=== PATIENT | female | born 1940 | race Caucasian/White ===

== ENCOUNTER 2018-01-30 09:12 | Inpatient (IN) | payer MEDICARE, BC ==
--- NOTE | 2018-01-30 09:36 | ED ---
HPI Chest Pain - HPI Summary HPI Summary: This pt is a 77 y/o female presenting to [facility] c/o mid sternal chest pain since 6 hours ago. Pt reports her mid chest pain radiates to right shoulder and right side of neck, and occasionally to upper back. Additionally notes she has SOB. She states her symptoms are similar to when she had a PE 1.5 years ago. Pt recently flew from the [facility] 2 days ago. She currently rates her chest pain 9 out of 10 in severity. Denies fever, chills, abd pain, nausea, vomiting. PMHx includes HTN, breast CA with L mastectomy, seizure disorder, PE. Her medications include Gabapentin, Metoprolol. Denies taking any anticoagulants. Her last stress test was "a long time ago." - History of Current Complaint Chief Complaint: EDChestPainROMI Time Seen by Provider: 01/30/18 09:22 Hx Obtained From: Patient Onset/Duration: Started Hours Ago, Still Present Timing: Lasting Hours Current Severity: Severe Pain Intensity: 9 Pain Scale Used: 0-10 Numeric Chest Pain Location: Mid Sternal Chest Pain Radiates: Yes Chest Pain Radiates To:: Back - upper, Shoulder - right, Neck - right side Aggravating Factor(s): Nothing Alleviating Factor(s): Nothing Associated Signs and Symptoms: Positive: Chest Pain, Shortness of Breath. Negative: Fever, Chills, Nausea, Abdominal Pain, Vomiting - Allergy/Home Medications Allergies/Adverse Reactions: Allergies Allergy/AdvReac Type Severity Reaction Status Date / Time No Known Allergies Allergy Verified 01/30/18 09:20 Home Medications: Home Medications Atorvastatin* [Lipitor*] 20 mg PO QPM 01/30/18 [History Confirmed 01/30/18] Gabapentin CAP(*) [Neurontin 300 CAP(*)] 300 mg PO TID 01/30/18 [History Confirmed 01/30/18] Metoprolol Tartrate TAB* [Lopressor TAB*] 50 mg PO BID 01/30/18 [History Confirmed 01/30/18] Venlafaxine EXT RELEASE CAP(NF [Effexor Xr CAP 225 MG (NF)] 225 mg PO DAILY [History Confirmed 01/30/18] PMH/Surg Hx/FS Hx/Imm Hx Cardiovascular History: Reports: Hx Hypertension Denies: Hx Myocardial Infarction Respiratory History: Reports: Hx Pulmonary Embolism Musculoskeletal History: Reports: Hx of Fracture(s) - R ankle Neurological History: Reports: Hx Seizures - Cancer History Cancer Type, Location and Year: Breast CA - Surgical History Surgery Procedure, Year, and Place: Bilateral knee replacements. Hysterectomy. L shoulder surgery. L mastectomy Infectious Disease History: No Infectious Disease History: Denies: Traveled Outside the [place] in Last 30 Days - Family History Family History: Sisters with breast CA - Social History Alcohol Use: None Substance Use Type: Reports: None Smoking Status (MU): Never Smoked Tobacco Review of Systems Negative: Fever, Chills Positive: Chest Pain Positive: Shortness Of Breath Negative: Abdominal Pain, Vomiting, Nausea All Other Systems Reviewed And Are Negative: Yes Physical Exam - Summary Physical Exam Summary: Appearance: Well appearing, no pain distress Skin: warm, dry, reflects adequate perfusion Head/face: normal Eyes: EOMI, ALYSE ENT: normal Neck: supple, nontender Respiratory: CTA, breath sounds present Cardiovascular: RRR, pulses symmetrical Abdomen: nontender, soft Bowel: present Musculoskeletal: normal, strength/ROM intact Neuro: normal, sensory motor intact, A&Ox3 Triage Information Reviewed: Yes Vital Signs On Initial Exam: Initial Vitals Temp Pulse Resp BP Pulse Ox 98.0 F 90 18 131/68 94 01/30/18 09:17 01/30/18 09:17 01/30/18 09:17 01/30/18 09:17 01/30/18 09:17 Vital Signs Reviewed: Yes Diagnostics - Vital Signs Vital Signs Temp Pulse Resp BP Pulse Ox 01/30/18 09:17 98.0 F 90 18 131/68 94 - Laboratory Result Diagrams: 01/30/18 09:45 01/30/18 09:45 Lab Statement: Any lab studies that have been ordered have been reviewed, and results considered in the medical decision making process. - Radiology Chest XR Radiology Interpretation Completed By: Radiologist Summary of Radiographic Findings: IMPRESSION: No active cardiopulmonary disease is noted. Dr. Campos has reviewed this report. - CT chest CTA CT Interpretation Completed By: Radiologist Summary of CT Findings: IMPRESSION: Negative for aneurysm or dissection of the thoracic aorta. Negative for thoracic lymphadenopathy. Unchanged 2.1 x 1.5 cm hypodense lesion projecting posteriorly from the RIGHT lobe of the thyroid gland compared with the [address] Campos has reviewed this report. Abdomen/Pelvis CTA CT Interpretation Completed By: Radiologist Summary of CT Findings: IMPRESSION: Negative for aneurysm or dissection of the thoracic aorta. Interval enlargement of multiple simple appearing hepatic cysts compared with 2012 exam. No suspicious focal hepatic lesions evident. Negative for lymphadenopathy. Degenerative spondylosis and facet joint osteoarthritis with acquired spinal stenosis. No relevant prior exam available to assess for chronicity of this finding. Correlate with clinical assessment and consider nonemergent MRI for further evaluation if deemed appropriate. Dr. Campos has reviewed this report. - EKG 09:25 Cardiac Rate: NL - at 89 bpm EKG Rhythm: Sinus Rhythm Summary of EKG Findings: LBBB. ST-T changes. 12:16 Cardiac Rate: NL - at 72 bpm EKG Rhythm: Sinus Rhythm Summary of EKG Findings: No acute changes Chest Pain Course/Dx - Course Assessment/Plan: Pt is a 77 y/o female, with hx of PE not on anticoagulants, who presents with mid sternal chest pain since 6 hours ago radiating to right shoulder and right side of neck, and occasionally to upper back. Additionally notes she has SOB. She states her symptoms are similar to when she had a PE 1.5 years ago. Chest XR shows no active cardiopulmonary disease is noted. CTA of chest/abd/pel is negative for dissection and PE. Blood work and urinalysis were obtained. First troponin is negative. In the ED course the pt was given aspirin, metoprolol, nitroglycerin. I discussed the case with Dr. Kwan, hospitalist, who accepted the pt for admission. - Chest Pain Differential Diagnosis/HQI/PQRI: Acute UT, ACS, Chest Wall - Diagnoses Provider Diagnoses: Chest pain, rule out acute myocardial infarction, Unstable angina - Provider Notifications Discussed Care Of Patient With: Desi Kwan - hospitalist Time Discussed With Above Provider: 12:00 Instructed by Provider To: Admit As Inpatient - Critical Care Time Critical Care Time: 30-74 min Discharge - Sign-Out/Discharge Documenting (check all that apply): Patient Departure - Admit to [facility] - Discharge Plan Condition: Stable Disposition: ADMITTED TO [facility] - Billing Disposition and Condition Condition: STABLE Disposition: Admitted to [facility] - Attestation Statements Document Initiated by Scribe: Yes Documenting Scribe: Sabine Torres Provider For Whom Scribe is Documenting (Include Credential): MD Rei Nobles Attestation: I, Sabine Torres, scribed for Kishan Campos MD on 01/30/18 at 1318. Scribe Documentation Reviewed: Yes Provider Attestation: The documentation as recorded by the scribe, Sabine Torres accurately reflects the service I personally performed and the decisions made by me, Kishan Campos MD
[2018-01-30 09:55] LABS: ABS Basophils 0 10^3/ul (0-0.2); ABS Eosinophils 0.3 10^3/ul (0-0.6); ABS Lymphocytes 0.9 10^3/ul (1.0-4.8); ABS Monocytes 0.7 10^3/ul (0-0.8); ABS Neutrophils 9.1 10^3/ul (1.5-7.7); ABS Nucleated RBC 0 10^3/ul; Eosinophil % 2.5 % (0-6); Hematocrit 43 % (35-47); Hemoglobin 14.3 g/dl (12.0-16.0); Lymphocyte % 8.4 % (25-47); Mean Corpuscular HGB Conc 33 g/dl (31-36); Mean Corpuscular Hemoglobin 32 pg (27-31); Mean Corpuscular Volume 96 fL (80-97); Mean Platelet Volume 7.6 um3 (7.4-10.4); Nucleated Red Blood Cells % 0.1; Platelet Count 370 10^3/ul (150-450); Red Blood Count 4.47 10^6/ul (4.00-5.40); Red Cell Distribution Width 14 % (10.5-15)
[2018-01-30] MEDS ORDERED: Nitroglycerin 2% OINT* 1 GM PAK TOPICAL ONE (10:00)
[2018-01-30 10:09] LABS: INR 0.94 (0.77-1.02)
[2018-01-30 10:13] LABS: EGFR Non-African American 67.2 (>60)
--- NOTE | 2018-01-30 10:21 | RAD ---
Indication: Chest pain. Single frontal view of the chest performed at 1004 hours was reviewed. No prior study is available for comparison. No mediastinal shift is noted. Heart is of normal size and configuration. Lung ahmadi appear clear. IMPRESSION: NO ACTIVE CARDIOPULMONARY DISEASE IS NOTED.
[2018-01-30] MEDS ORDERED: Iohexol 350* (CONTRAST) 500 ML MDV IV ONE (11:05)
[2018-01-30 11:41] LABS: Urine Appearance Clear; Urine Blood Negative (Negative); Urine Color Yellow; Urine Ketones Negative (Negative); Urine Protein Negative (Negative); Urine Red Blood Cell Trace(0-2/hpf) (Absent); Urine Specific Gravity 1.041 (1.010-1.030); Urine Urobilinogen Negative (Negative); Urine White Blood Cell Trace(0-5/hpf) (Absent)
--- NOTE | 2018-01-30 11:49 | RAD ---
INDICATION: Chest pain radiating to the back. Assess for aortic dissection. History of breast carcinoma. COMPARISON: January 30, 2018 chest radiograph. TECHNIQUE: Multidetector CT images were obtained from the lung apices to the ischial tuberosities with 97 mL Omnipaque 350 IV contrast. No oral contrast administered.. Multiplanar reformation including maximum intensity projection and 3-D arterial volume rendering. CHEST REPORT: Motion artifact degrades image quality. Mild bilateral subsegmental atelectasis. No alveolar consolidation concerning for pneumonia. Negative for suspicious focal pulmonary lesions. Negative for pleural effusion or pneumothorax. Surgical clips at the LEFT axilla. Negative for thoracic lymphadenopathy based on short axis size criteria. Unchanged 2.1 x 1.5 cm hypodense lesion projecting posteriorly from the RIGHT lobe of the thyroid gland. Negative for cardiomegaly or pericardial effusion. Unremarkable central pulmonary arteries. The thoracic aorta measures up to 2.8 cm diameter at the sinotubular junction, 3.1 cm diameter at the ascending segment at the level of the main pulmonary artery, 2.8 cm at the proximal arch, 2.9 cm at the distal arch, and 2.5 cm at the distal descending segment. Mild atherosclerotic plaque. Negative for dissection of the thoracic aorta. Polyarticular degenerative arthropathy. Negative for suspicious thoracic osseous lesions. CHEST IMPRESSION: #. Negative for aneurysm or dissection of the thoracic aorta. #. Negative for thoracic lymphadenopathy. #. Unchanged 2.1 x 1.5 cm hypodense lesion projecting posteriorly from the RIGHT lobe of the thyroid gland compared with the 2012 CT without concern. ABDOMEN PELVIS REPORT: LIVER / GALLBLADDER / PANCREAS / SPLEEN: Innumerable sharply circumscribed water density lesions of the normal sized liver with interval increase in size of the lesions. Labor Relations Director lesion at the dome of the RIGHT hepatic lobe measures up to 4.3 cm diameter compared with 3.2 cm previously. No suspicious focal hepatic lesions evident. Physiologic distention of the gallbladder without suspicious CT finding. Negative for biliary dilatation. Advanced fatty replacement of the pancreas without suspicious CT finding. Unremarkable spleen. ALIMENTARY TRACT: Negative for CT abnormality of the upper GI or small bowel. The appendix is not visualized. Negative for RIGHT lower quadrant inflammatory change. Severe diverticulosis of the colon at the sigmoid segment without findings of diverticulitis. Negative for ascites, free air, hernias. MESENTERIC: Unremarkable. ADRENAL / GENITOURINARY: Normal adrenal glands. Symmetric cortical phase enhancement of the kidneys. Small RIGHT kidney parapelvic cysts without concern. Negative for suspicious renal lesions or hydronephrosis. Unremarkable ureters and partially distended urinary bladder. Post hysterectomy. Unremarkable adnexal regions. RETROPERITONEAL: Negative for lymphadenopathy. VASCULAR: Tortuous normal diameter abdominal aorta and iliac arteries with only minimal atherosclerotic plaque. Negative for dissection of the abdominal aorta. Physiologic distention of the IVC. BONES: Negative for suspicious focal osseous lesions. Lumbar sacral spine degenerative spondylosis and facet joint osteoarthritis. Acquired spinal stenosis most prominent at L4-L5 where there is moderately severe acquired central canal stenosis. RIGHT unilateral L5 spondylolysis and grade 1 L5-S1 anterolisthesis. SOFT TISSUE: Unremarkable. IMPRESSION: #. Negative for aneurysm or dissection of the thoracic aorta. #. Interval enlargement of multiple simple appearing hepatic cysts compared with the 2012 exam. No suspicious focal hepatic lesions evident. #. Negative for lymphadenopathy. #. Degenerative spondylosis and facet joint osteoarthritis with acquired spinal stenosis. No relevant prior exams available to assess for chronicity of this finding. Correlate with clinical assessment and consider nonemergent MRI for further evaluation if deemed appropriate.
[2018-01-30] MEDS ORDERED: Aspirin 81 mg CHEW TAB* 81 MG TAB.CHEW PO ONE (11:56)
[2018-01-30] MEDS ORDERED: Metoprolol Tartrate TAB* 25 MG PO ONE (12:05)
[2018-01-30] MEDS ORDERED: Heparin DRIP 25,000 UNITS(*) 25,000 UNITS/500 ML BAG IV SCH (12:15)
[2018-01-30] MEDS ORDERED: Heparin for STEMI(*) 5,000 UNITS/ML 1 ML VIAL IV ONE (12:16)
[2018-01-30] MEDS ORDERED: Ondansetron ODT TAB* 4 MG SL PRN (13:42)
[2018-01-30] MEDS ORDERED: Heparin VIAL(*) 5000 UNITS/ML VIAL (FIVE THOUSAND) IV SCH (14:00)
--- NOTE | 2018-01-30 15:38 | HP ---
AMENDED REPORT NOW INCLUDES DESIGNATED COSIGNER CC: Dr. Ramon * [facility] MEDICINE HISTORY AND PHYSICAL: DATE OF ADMISSION: 01/30/18 PRIMARY CARE PHYSICIAN: Dr. Ramon. ATTENDING PHYSICIAN: Dr. Desi Martin * (dictation provided by Tanisha Vallejo NP ). CHIEF COMPLAINT: Chest pain. HISTORY OF PRESENT ILLNESS: Ms. Khan is a 77-year-old female with a past medical history of hypertension, hyperlipidemia, seizure disorder, breast cancer , who presents today to the hospital with concern for chest pain. Ms. Khan states that she recently moved to our area from [place]. She was flying back from the [facility] on 01/26/18. She states that she has been feeling quite well. She had no acute health complaints yesterday. She went to bed feeling fine and then at approximately 3 a.m., she awoke with pain in the center of her chest radiating down around both ribs as well as up into her left arm and left neck. She states this pain felt very similar to her previous history of pulmonary embolism, which she had at the time of an ankle surgery. She tried to sleep through the night, but could not get comfortable and therefore ultimately came to the emergency room for evaluation. She denies any unusual headache. She has had no fever. She denies cough. She does report a little bit of shortness of breath with the symptom of pain. She has no nausea, vomiting, diarrhea, abdominal pain. In the emergency room, Ms. Khan had labs, which included 2 troponins, which were 0.00. She had a positive leuk esterase in the urinalysis, but no bacteria or nitrites. She has no report of dysuria or frequency. She has no leukocytosis. Her vital signs are stable. Her imaging included a chest x-ray, which was normal and a chest, abdomen and pelvis CTA, which did rule out pulmonary embolism. PAST MEDICAL HISTORY: 1. Hypertension. 2. Breast cancer, status post left mastectomy. 3. Question of a seizure disorder. 4. History of PE at the time of broken ankle. 5. Hyperlipidemia. PAST SURGICAL HISTORY: 1. Knee replacements x2 bilaterally. 2. Pinning to the right ankle. 3. Left shoulder surgery. 4. Tonsillectomy. 5. Carpal tunnel release. MEDICATIONS: Outpatient are: 1. Metoprolol tartrate 50 mg p.o. b.i.d. 2. Gabapentin 300 mg p.o. t.i.d. 3. Atorvastatin 20 mg p.o. q.p.m. 4. Venlafaxine 225 mg daily. ALLERGIES: No known drug allergies. FAMILY HISTORY: The patient reports her mother lived to 88 years old and of old age and her dad related to emphysema and he was a smoker. SOCIAL HISTORY: The patient denies any tobacco or drug use. She drinks alcohol very rarely. Her healthcare proxy would be Marla Duran. REVIEW OF SYSTEMS: A 14-point review of systems was completed with Ms. Khan and all those not mentioned above were negative. PHYSICAL EXAMINATION GENERAL: Ms. Khan is lying in the bed. She is in no acute distress. VITAL SIGNS: Temperature 98.0, pulse rate 75, respiratory rate 19, O2 saturation 96% on room air, blood pressure 140/83. LUNGS: Clear to auscultation bilaterally with no accessory muscle use and good aeration. HEART: S1, S2. No murmur, rub, or gallop and regular. ABDOMEN: Soft, nontender, with bowel sounds positive x4. EXTREMITIES: No cyanosis. No edema. NEURO: She is alert. She is oriented x3. She moves all extremities equally. There is no facial asymmetry or focal weakness. Extraocular movements are intact. SKIN: Intact. DIAGNOSTIC STUDIES/LAB DATA: WBC 11.0, hemoglobin 14.3, hematocrit 43, platelet count 370. INR is 0.94. Sodium 141, potassium 4.0, chloride 107, serum bicarbonate 24, BUN 14, creatinine 0.82, glucose 127, lactic acid 1.5. Troponin 0.00 x2. BNP 75. Urinalysis shows 2+ leuk esterase, no bacteria, and no nitrite. Her chest x-ray is read as follows: No active cardiopulmonary disease is noted. The chest, abdomen, and pelvis CT is read as follows: Negative for aneurysm or dissection of the thoracic aorta. Negative for thoracic lymphadenopathy. Unchanged 2.1 x 1.5 cm hypodense lesion projecting posteriorly from the right lobe of the thyroid gland compared with [address] without concern. There is interval enlargement of multiple simple appearing hepatic cysts compared with the 2012 exam. No suspicious focal hepatic lesions evident. Negative for lymphadenopathy. Degenerative spondylosis and facet joint osteoarthritis with acquired spinal stenosis. ASSESSMENT AND PLAN: Ms. Khan is a 77-year-old female with a past medical history of hypertension, hyperlipidemia, and distant history of pulmonary embolism related to an ankle fracture, who presents today to the hospital with concern for chest pain. Her workup thus far has been negative. Our plans are for observation in the hospital for the followin. Chest pain. The patient has had troponins x2, both of which were negative. She has an EKG, which shows an incomplete left bundle branch block with no significant change since previous. She is continuing to have discomfort now. I think based on this negative workup that there is lower risk for acute coronary syndrome; however, she does have risk factors of hypertension and hyperlipidemia and she deserves monitoring overnight for an additional troponin and for chemical nuclear stress test tomorrow. The patient states that she would not be able to walk on a treadmill secondary to generalized deconditioning as well as ankle and knee pain at times. 2. Hypertension. Continue metoprolol. 3. Seizure disorder. Continue gabapentin. 4. Hyperlipidemia. Continue atorvastatin. 5. Code status is full code. TIME SPENT: Approximately 60 minutes were spent on the admission of this patient, more than half the time spent with her at the bedside reviewing the events leading up to this hospitalization, performing the physical examination, and reviewing the plan of care. TANISHA VALLEJO NP [id number]/CPS #: [id number] BUNNY
[2018-01-30] MEDS: Acetaminophen TAB* 325 MG PO PRN ×2 (15:46→22:10)
[2018-01-30] MEDS: Gabapentin CAP(*) 300 MG PO SCH ×2 (15:47→20:51)
[2018-01-30] MEDS: Atorvastatin* 20 MG TAB PO SCH (20:51)
[2018-01-30] MEDS: Metoprolol Tartrate TAB* 50 mg PO SCH (20:52)
[2018-01-30] MEDS: Heparin VIAL(*) 5000 UNITS/ML VIAL (FIVE THOUSAND) SUBCUT SCH (20:52)
[2018-01-31] MEDS: Heparin VIAL(*) 5000 UNITS/ML VIAL (FIVE THOUSAND) SUBCUT SCH ×3 (06:09→20:56)
[2018-01-31] MEDS: Acetaminophen TAB* 325 MG PO PRN ×2 (06:11→15:59)
[2018-01-31] MEDS: Metoprolol Tartrate TAB* 50 mg PO SCH ×2 (10:17→20:56)
[2018-01-31] MEDS: Aspirin 81 mg CHEW TAB* 81 MG TAB.CHEW PO SCH (10:17)
[2018-01-31] MEDS: Venlafaxine EXT RELEASE CAP* 75 MG PO SCH (10:17)
[2018-01-31] MEDS: Gabapentin CAP(*) 300 MG PO SCH ×3 (10:17→20:55)
--- NOTE | 2018-01-31 10:35 | RAD ---
Edited for charges. Indication: Chest pain. Myocardial perfusion scan was performed utilizing 1 day protocol. Rest myocardial perfusion was performed after intravenous injection of 10.3 mCi of technetium 99 and tetrofosmin. Pharmacological stress was applied and 25.6 mCi of technetium 99m tetrofosmin was injected for the stress portion of study. The left ventricle appears normal in size. No significant fixed or reversible perfusion defect is identified. There is some shortening of the anterior wall at the base of the heart. This is persistent on both the rest and stress images. No definite reversible change is noted. The ejection fraction chest is 59%. No focal wall motion abnormalities identified. IMPRESSION: Some minimal photopenia at the base of the heart near the anterior wall which is persistent. No definite reversible change is noted. Ejection fraction of 59%. No focal wall motion abnormality is noted. ASSESSMENT: Low risk Based on imaging criteria from ACC/AHA 2002 Guideline Update for the Management of Patients With Chronic Stable Angina Table 23. Noninvasive Risk Stratification. Reference. MTDD
[2018-01-31] MEDS ORDERED: Regadenoson* 0.4 MG/5 ML SYRINGE ONE (12:39)
--- NOTE | 2018-01-31 15:31 | PN ---
Subjective Date of Service: 01/31/18 Interval History: PAtient seen and examined post hany-scan. States she has diffuse pain with inspiration only, cannot characterize it as "chest" pain. Denies SOB, does feel general fatigue and some weakness over the last few days. Objective Active Medications: Acetaminophen (Tylenol Tab*) 650 mg PO Q6H PRN PRN Reason: PAIN Last Admin: 01/31/18 06:11 Dose: 650 mg Aspirin (Aspirin 81 Mg Chew Tab*) 81 mg PO DAILY [facility] Last Admin: 01/31/18 10:17 Dose: 81 mg Atorvastatin Calcium (Lipitor*) 20 mg PO QPM [facility] Last Admin: 01/30/18 20:51 Dose: 20 mg Gabapentin (Neurontin Cap(*)) 300 mg PO TID [facility] Last Admin: 01/31/18 13:26 Dose: 300 mg Heparin Sodium (Porcine) (Heparin Vial(*)) 5,000 units SUBCUT Q8HR [facility] Last Admin: 01/31/18 13:27 Dose: 5,000 units Metoprolol Tartrate (Lopressor Tab*) 50 mg PO BID [facility] Last Admin: 01/31/18 10:17 Dose: 50 mg Ondansetron HCl (Zofran Odt Tab*) 4 mg SL Q6H PRN PRN Reason: NAUSEA/VOMITING Venlafaxine HCl (Effexor Xr Cap*) 225 mg PO DAILY [facility] Last Admin: 01/31/18 10:17 Dose: 225 mg Vital Signs - 8 hr 01/31/18 01/31/18 01/31/18 07:55 08:00 10:17 Temperature 98.2 F Pulse Rate 86 Respiratory 20 16 16 Rate Blood Pressure 152/83 (mmHg) O2 Sat by Pulse 94 Oximetry 01/31/18 01/31/18 01/31/18 11:52 11:59 13:26 Temperature 97.8 F Pulse Rate 64 Respiratory 20 16 16 Rate Blood Pressure 155/68 (mmHg) O2 Sat by Pulse 96 Oximetry Oxygen Devices in Use Now: None Appearance: Alert, appears tired, NAD Eyes: No Scleral Icterus, PERRLA Ears/Nose/Mouth/Throat: NL Teeth, Lips, Gums Neck: NL Appearance and Movements; NL JVP, Trachea Midline Respiratory: Symmetrical Chest Expansion and Respiratory Effort, Clear to Auscultation Cardiovascular: NL Sounds; No Murmurs; No JVD, RRR, No Edema Abdominal: NL Sounds; No Tenderness; No Distention Extremities: No Edema Skin: No Rash or Ulcers Neurological: Alert and Oriented x 3, NL Sensation Nutrition: Taking PO's Result Diagrams: 01/30/18 09:45 01/30/18 09:45 Microbiology and Other Data: Microbiology 01/30/18 11:26 Urine Culture - Final Urine Diagnostic Imaging: Patient Name: CORRINE MILLARD Medical Record#: [id number] Ordering Physician: Kishan Campos MD Acct.#: [id number] : 1940 Age: 77 Sex: F Location: EMERGENCY DEPARTMENT Exam Date: 01/30/18941 ADM Status: REG ER Order Information: CTA CHEST/ABD/PEL Accession Number: [id number] CPT: 25605 INDICATION: Chest pain radiating to the back. Assess for aortic dissection. History of breast carcinoma. COMPARISON: January 30, 2018 chest radiograph. TECHNIQUE: Multidetector CT images were obtained from the lung apices to the ischial tuberosities with 97 mL Omnipaque 350 IV contrast. No oral contrast administered.. Multiplanar reformation including maximum intensity projection and 3-D arterial volume rendering. CHEST REPORT: Motion artifact degrades image quality. Mild bilateral subsegmental atelectasis. No alveolar consolidation concerning for pneumonia. Negative for suspicious focal pulmonary lesions. Negative for pleural effusion or pneumothorax. Surgical clips at the LEFT axilla. Negative for thoracic lymphadenopathy based on short axis size criteria. Unchanged 2.1 x 1.5 cm hypodense lesion projecting posteriorly from the RIGHT lobe of the thyroid gland. Negative for cardiomegaly or pericardial effusion. Unremarkable central pulmonary arteries. The thoracic aorta measures up to 2.8 cm diameter at the sinotubular junction, 3.1 cm diameter at the ascending segment at the level of the main pulmonary artery, 2.8 cm at the proximal arch, 2.9 cm at the distal arch, and 2.5 cm at the distal descending segment. Mild atherosclerotic plaque. Negative for dissection of the thoracic aorta. Polyarticular degenerative arthropathy. Negative for suspicious thoracic osseous lesions. CHEST IMPRESSION: #. Negative for aneurysm or dissection of the thoracic aorta. #. Negative for thoracic lymphadenopathy. #. Unchanged 2.1 x 1.5 cm hypodense lesion projecting posteriorly from the RIGHT lobe of the thyroid gland compared with the [address] CT without concern. ABDOMEN PELVIS REPORT: LIVER / GALLBLADDER / PANCREAS / SPLEEN: Innumerable sharply circumscribed water density lesions of the normal sized liver with interval increase in size of the lesions. [employer] lesion at the dome of the RIGHT hepatic lobe measures up to 4.3 cm diameter compared with 3.2 cm previously. No suspicious focal hepatic lesions evident. Physiologic distention of the gallbladder without suspicious CT finding. Negative for biliary dilatation. Advanced fatty replacement of the pancreas without suspicious CT finding. Unremarkable spleen. ALIMENTARY TRACT: Negative for CT abnormality of the upper GI or small bowel. The appendix is not visualized. Negative for RIGHT lower quadrant inflammatory change. Severe diverticulosis of the colon at the sigmoid segment without findings of diverticulitis. Negative for ascites, free air, hernias. MESENTERIC: Unremarkable. ADRENAL / GENITOURINARY: Normal adrenal glands. Symmetric cortical phase enhancement of the kidneys. Small RIGHT kidney parapelvic cysts without concern. Negative for suspicious This report is only to be considered final once signed by the Provider(s) as displayed in the "<Electronically Signed by >" field (s). Absence of a signature indicates the report is in a draft status and still needs to be finalized. In the event this document was created by someone other than the signing Provider, the individual initiating the document will be listed in the "Entered by:" or "Dictated by:" ahmadi. [facility] Patient Name:CORRINE MILLARD MR:[id number] : 1940 renal lesions or hydronephrosis. Unremarkable ureters and partially distended urinary bladder. Post hysterectomy. Unremarkable adnexal regions. RETROPERITONEAL: Negative for lymphadenopathy. VASCULAR: Tortuous normal diameter abdominal aorta and iliac arteries with only minimal atherosclerotic plaque. Negative for dissection of the abdominal aorta. Physiologic distention of the IVC. BONES: Negative for suspicious focal osseous lesions. Lumbar sacral spine degenerative spondylosis and facet joint osteoarthritis. Acquired spinal stenosis most prominent at L4-L5 where there is moderately severe acquired central canal stenosis. RIGHT unilateral L5 spondylolysis and grade 1 L5-S1 anterolisthesis. SOFT TISSUE: Unremarkable. IMPRESSION: #. Negative for aneurysm or dissection of the thoracic aorta. #. Interval enlargement of multiple simple appearing hepatic cysts compared with the 2012 exam. No suspicious focal hepatic lesions evident. #. Negative for lymphadenopathy. #. Degenerative spondylosis and facet joint osteoarthritis with acquired spinal stenosis. No relevant prior exams available to assess for chronicity of this finding. Correlate with clinical assessment and consider nonemergent MRI for further evaluation if deemed appropriate. <Electronically signed by Stanley Calderón MD in OV> 01/30/18 1146 Dictated By: Stanley Calderón MD Dictated Date/Time: 01/30/18 1146 Transcribed Date/Time: 01/30/18 1129 Copy to: Assess/Plan/Problems-Billing Assessment: This is a 77 year old female with hx of provoked PE that presented to the ED with a complaint of chest pain with inspiration with accompanying fatigue. - Patient Problems (1) Chest pain Code(s): R07.9 - CHEST PAIN, UNSPECIFIED SNOMED Code(s): 89266820 Comment: - Stress today with low risk - Given that pain is reproducible with inspiration, it seems more likely this is musculoskeletal given her recent long flight and general deconditioning - Patient states no post-prandial pain and no SOB - Will obtain PT consult and eval (2) Physical deconditioning Code(s): R53.81 - OTHER MALAISE SNOMED Code(s): 86776708672601 Comment: - Patient endorses poor diet and lack of physical activity and feels she is having issues secondary to these events and recent move from the [facility] - Discussed at length with her and her daughter, we will obtain PT eval, refer for VNS, set up follow up with [facility] (until she can get in to see her PCP from 5 years ago) and renew scripts to ease with transition to her daughter's home. (3) History of pulmonary embolus (PE) Code(s): Z86.711 - PERSONAL HISTORY OF PULMONARY EMBOLISM SNOMED Code(s): 762891825 Comment: - CTA as above - Discussed imaging with radiologist regarding possibility of PE, per Dr. Calderón NO PE on this study (4) History of breast cancer Code(s): Z85.3 - PERSONAL HISTORY OF MALIGNANT NEOPLASM OF BREAST SNOMED Code( s): 801572525 Comment: - Stable (5) Hypertension Code(s): I10 - ESSENTIAL (PRIMARY) HYPERTENSION SNOMED Code(s): 76563814 Comment: - BP stable on BB (6) Hyperlipidemia Code(s): E78.5 - HYPERLIPIDEMIA, UNSPECIFIED SNOMED Code(s): 66116222 Comment: - Continue statin (7) Seizure disorder Code(s): G40.909 - EPILEPSY, UNSP, NOT INTRACTABLE, WITHOUT STATUS EPILEPTICUS SNOMED Code(s): 241677214 Comment: - Stable on gabapentin (8) DVT prophylaxis Code(s): PCT1080 - SNOMED Code(s): 346225142 Comment: - HSQ (9) Full code status Code(s): Z78.9 - OTHER SPECIFIED HEALTH STATUS SNOMED Code(s): 749920962 Status and Disposition: Pending PT evaluation, likely home with VNS referral and outpatient PT. Will need [facility] appointment or follow up with her old PCP if possible.
[2018-01-31] MEDS: Atorvastatin* 20 MG TAB PO SCH (17:53)
[2018-02-01] MEDS: Acetaminophen TAB* 325 MG PO PRN ×3 (03:15→23:19)
[2018-02-01] MEDS: Heparin VIAL(*) 5000 UNITS/ML VIAL (FIVE THOUSAND) SUBCUT SCH ×3 (05:49→22:21)
[2018-02-01] MEDS: Metoprolol Tartrate TAB* 50 mg PO SCH ×2 (08:24→22:20)
[2018-02-01] MEDS: Venlafaxine EXT RELEASE CAP* 75 MG PO SCH (08:24)
[2018-02-01] MEDS: Gabapentin CAP(*) 300 MG PO SCH ×3 (08:24→22:20)
[2018-02-01] MEDS: Aspirin 81 mg CHEW TAB* 81 MG TAB.CHEW PO SCH (08:25)
[2018-02-01] MEDS ORDERED: Magnesium Sulfate 1 GM IV* 1 GM/100 ML BAG IV ONE (13:28)
--- NOTE | 2018-02-01 13:30 | PN ---
Subjective Date of Service: 02/01/18 Interval History: Patient was set to be discharged today to home when she had a 14 beat asymptomatic run of Vtach. Plan to continue to monitor. Pt denies any complaints. Denies CP/SOB/palpitations. Objective Active Medications: Acetaminophen (Tylenol Tab*) 650 mg PO Q6H PRN PRN Reason: PAIN Last Admin: 02/01/18 03:15 Dose: 650 mg Aspirin (Aspirin 81 Mg Chew Tab*) 81 mg PO DAILY [facility] Last Admin: 02/01/18 08:25 Dose: 81 mg Atorvastatin Calcium (Lipitor*) 20 mg PO QPM [facility] Last Admin: 01/31/18 17:53 Dose: 20 mg Gabapentin (Neurontin Cap(*)) 300 mg PO TID [facility] Last Admin: 02/01/18 08:24 Dose: 300 mg Heparin Sodium (Porcine) (Heparin Vial(*)) 5,000 units SUBCUT Q8HR [facility] Last Admin: 02/01/18 05:49 Dose: 5,000 units Magnesium Sulfate/Dextrose (Magnesium Sulfate 1 Gm Iv*) 1 gm in 100 mls @ 200 mls/hr IV ONCE ONE Stop: 02/01/18 13:57 Metoprolol Tartrate (Lopressor Tab*) 50 mg PO BID [facility] Last Admin: 02/01/18 08:24 Dose: 50 mg Ondansetron HCl (Zofran Odt Tab*) 4 mg SL Q6H PRN PRN Reason: NAUSEA/VOMITING Last Admin: 02/01/18 10:06 Dose: 4 mg Venlafaxine HCl (Effexor Xr Cap*) 225 mg PO DAILY [facility] Last Admin: 02/01/18 08:24 Dose: 225 mg Vital Signs - 8 hr 02/01/18 02/01/18 02/01/18 07:41 08:00 08:09 Temperature 97.8 F Pulse Rate 102 98 Respiratory 20 16 Rate Blood Pressure 157/77 158/96 (mmHg) O2 Sat by Pulse 97 96 Oximetry 02/01/18 02/01/18 02/01/18 08:24 10:07 11:03 Temperature 97.6 F Pulse Rate 70 Respiratory 16 18 16 Rate Blood Pressure 155/75 (mmHg) O2 Sat by Pulse 96 Oximetry Oxygen Devices in Use Now: None Appearance: 77 yo female laying in bed A+O x3 Eyes: No Scleral Icterus, PERRLA Ears/Nose/Mouth/Throat: Mucous Membranes Moist Neck: NL Appearance and Movements; NL JVP Respiratory: Symmetrical Chest Expansion and Respiratory Effort, Clear to Auscultation Cardiovascular: NL Sounds; No Murmurs; No JVD, RRR, No Edema Abdominal: NL Sounds; No Tenderness; No Distention, - - obese Extremities: No Edema Skin: No Rash or Ulcers, No Nodules or Sclerosis Neurological: Alert and Oriented x 3, NL Sensation, NL Gait, NL Muscle Strength and Tone Lines/Tubes/Other Access: Clean, Dry and Intact Peripheral IV Nutrition: Taking PO's Result Diagrams: 01/30/18 09:45 02/01/18 14:40 Microbiology and Other Data: Microbiology 01/30/18 11:26 Urine Culture - Final Urine Assess/Plan/Problems-Billing Assessment: This is a 77 year old female with hx of provoked PE that presented to the ED with a complaint of chest pain with inspiration with accompanying fatigue- was going to be discharged when she had a 14 beat of asymptomatic vtach - Patient Problems (1) V-tach Comment: - 14 beat run of asymptomatic vtach - 1gm Mg+ given. Send mg+ and BMP now. - Continue tele monitoring. - will discuss with cardiology (2) Chest pain Comment: - Cardiac stress test with low risk 01/31 - Given that pain is reproducible with inspiration, it seems more likely this is musculoskeletal given her recent long flight and general deconditioning - Patient states no post-prandial pain and no SOB - PT consult and eval - recommended home PT (3) Physical deconditioning Comment: - Patient endorses poor diet and lack of physical activity and feels she is having issues secondary to these events and recent move from the [facility] - Discussed at length with her and her daughter, home PT, refer for VNS, set up follow up with [facility] (until she can get in to see her PCP from 5 years ago) and renew scripts to ease with transition to her daughter's home. (4) History of pulmonary embolus (PE) Comment: - CTA as above - Discussed imaging with radiologist regarding possibility of PE, per Dr. Calderón NO PE on this study (5) History of breast cancer Comment: - Stable (6) Hyperlipidemia Comment: - Continue statin (7) Hypertension Comment: - BP stable on BB (8) Seizure disorder Comment: - Stable on gabapentin (9) DVT prophylaxis Comment: - HSQ (10) Full code status Status and Disposition: Pending PT evaluation, home with VNS referral and outpatient PT. Will need [facility] appointment or follow up with her old PCP if possible.
[2018-02-01 15:23] LABS: EGFR Non-African American 87.9 (>60)
[2018-02-01] MEDS: Atorvastatin* 20 MG TAB PO SCH (17:26)
[2018-02-01] MEDS ORDERED: ASA-APAP-CAFFEINE ES (NF) 1 TAB TAB PO ONE ×2 (20:22)
[2018-02-01] MEDS ORDERED: Ibuprofen TAB* 600 MG PO ONE (20:25)
--- NOTE | 2018-02-01 21:54 | RAD ---
EXAM: CT Head Without Intravenous Contrast CLINICAL HISTORY: 77 years old, female; Signs and symptoms; Other: Possible seizure; Additional info: [facility] TECHNIQUE: Axial computed tomography images of the head/brain without intravenous contrast. All CT scans at this facility use at least one of these dose optimization techniques: automated exposure control; mA and/or kV adjustment per patient size (includes targeted exams where dose is matched to clinical indication); or iterative reconstruction. COMPARISON: No relevant prior studies available. FINDINGS: Brain: Nonspecific hypodensities of the periventricular and deep subcortical white matter, most likely secondary to chronic small vessel ischemic change. No intracranial hemorrhage or extra-axial fluid collection. No evidence of mass effect or midline shift. Anderson-white matter differentiation is normal. Ventricles: Moderate prominence of the ventricles and sulci, most likely attributed to parenchymal volume loss. Bones/joints: Unremarkable. No acute fracture. Soft tissues: Unremarkable. Sinuses: Unremarkable as visualized. No acute sinusitis. Mastoid air cells: Unremarkable as visualized. No mastoid effusion. IMPRESSION: 1. Acute intracranial pathology. 2. Other chronic findings, as above. To contact [facility] with a general question: Operations Center - [phone] For direct physician to physician contact: Physician Hotline - [phone] [facility] [place] ([facility] Facility ID #[id number])
[2018-02-02] MEDS: Heparin VIAL(*) 5000 UNITS/ML VIAL (FIVE THOUSAND) SUBCUT SCH ×2 (05:38→13:38)
[2018-02-02 06:42] LABS: ABS Basophils 0.1 10^3/ul (0-0.2); ABS Eosinophils 0.4 10^3/ul (0-0.6); ABS Lymphocytes 1.7 10^3/ul (1.0-4.8); ABS Monocytes 0.5 10^3/ul (0-0.8); ABS Neutrophils 3.9 10^3/ul (1.5-7.7); ABS Nucleated RBC 0 10^3/ul; Eosinophil % 6.5 % (0-6); Hematocrit 38 % (35-47); Hemoglobin 12.9 g/dl (12.0-16.0); Lymphocyte % 26.1 % (25-47); Mean Corpuscular HGB Conc 34 g/dl (31-36); Mean Corpuscular Hemoglobin 32 pg (27-31); Mean Corpuscular Volume 95 fL (80-97); Mean Platelet Volume 7.8 um3 (7.4-10.4); Nucleated Red Blood Cells % 0.1; Platelet Count 343 10^3/ul (150-450); Red Blood Count 3.98 10^6/ul (4.00-5.40); Red Cell Distribution Width 14 % (10.5-15); White Blood Count 6.7 10^3/ul (3.5-10.8)
[2018-02-02 06:51] LABS: EGFR Non-African American 92.9 (>60)
[2018-02-02] MEDS: Gabapentin CAP(*) 300 MG PO SCH ×2 (09:38→13:36)
[2018-02-02] MEDS: Metoprolol Tartrate TAB* 50 mg PO SCH (09:40)
[2018-02-02] MEDS: Aspirin 81 mg CHEW TAB* 81 MG TAB.CHEW PO SCH (09:41)
[2018-02-02] MEDS: Venlafaxine EXT RELEASE CAP* 75 MG PO SCH (09:42)
[2018-02-02 16:06] VITALS: BP 148/76
[2018-02-02] MEDS ORDERED: Metoprolol Tartrate TAB* 25 MG PO SCH (21:00)
[2018-02-03] MEDS ORDERED: Metoprolol Tartrate TAB* 50 mg PO SCH (09:00)
--- NOTE | 2018-02-03 12:32 | DS ---
CC: Dr. Ramon; Dr. Hagen * DISCHARGE SUMMARY: DATE OF ADMISSION: 01/30/18 DATE OF DISCHARGE: 02/02/18 CHIEF COMPLAINT: Chest pain. ATTENDING FOR THIS ADMISSION: Dr. Wade. MY ATTENDING FOR TODAY: Dr. Hagen.* (DICTATED BY NOAH MERA NP) PRIMARY CARE PHYSICIAN: Dr. Ramon. HOSPITAL COURSE: This is a pleasant 77-year-old female patient, who came to the emergency department with report of chest pain that woke her up in the middle of the night. The patient states she did not have feeling like this before, became concerned at about 3 a.m. as the pain was radiating into her left arm and her neck. She said it felt very similar to her previous history of a pulmonary embolism, which she had a probable PE after ankle surgery. The patient states that she had no other symptoms. She denied any diaphoresis, nausea or vomiting, or shortness of breath. The patient was admitted for chest pain, rule out ACS. She had 2 troponins, which were negative. She did have some leukocyte esterase in her urine, however, she did not complain of any urinary complaints and did not appear to have a UTI. Chest x-ray was normal. Chest and abdominal CTA ruled out pulmonary embolism and no further pathology noted. The patient underwent a nuclear stress test, which revealed low risk. Ejection fraction was 59% with no focal wall motion abnormalities. The patient did have two short bursts of nonsustained SVT. She was not symptomatic during these events and they were self limiting. She also had a CAT scan of the brain , as she suddenly developed very severe headache, which she attributed to her n.p.o. status for her testing. The patient does state that she has history of migraines and headaches in the past. However, given her the severity of the headache she was describing, a CT scan was performed yesterday, which showed no acute intracranial pathology. The patient responded well to Fioricet and when she was seen today morning of discharge, she is not complaining of any headache. No fevers, no chills, no chest pain, no shortness of breath, no palpitations, and no further constitutional complaints. The patient states she feels well and was ready for discharge to home. REVIEW OF SYSTEMS: A 10-point review of systems was negative except as noted above. PHYSICAL EXAMINATION: On the day of discharge, the patient is in no acute distress. She is well appearing. Vital Signs: Her blood pressure of 148/76, heart rate 74, respiratory rate 18, O2 saturation 96% on room air with temperature of 98.6. HEENT: Patient is atraumatic and normocephalic. PERRLA with nonicteric sclerae. Neck: Supple, nontender. No JVD noted. No carotid bruit auscultated. Cardiovascular: S1, S2 present. No murmurs, gallops, or rubs noted. Rate and rhythm are regular. Lungs are clear bilaterally to auscultation with no wheezing, rhonchi, or rales. Abdomen is soft, nontender, nondistended. Positive bowel sounds in all 4 quadrants. was deferred. Musculoskeletal: There is no clubbing, no cyanosis, no edema. She does have an unsteady gait at baseline and does use a walker for assistance. Neurologic: She is otherwise grossly intact with no focal deficits. Psychiatric: She is cooperative and appropriate. LABORATORY DATA: WBCs 6.7, RBCs 3.98, hemoglobin 12.9, hematocrit 38, platelets 343. Sodium 140, potassium 3.9, chloride 110, CO2 of 25, BUN of 11, creatinine 0.62, GFR 92.9, glucose 111, calcium 8.5, magnesium 2.3. Troponins were negative x3 at 0.00. BNP of 75. TSH is 3.45. Urinalysis, again 2+ leukocyte esterase, but no nitrites and no bacteria. DISCHARGE DIAGNOSES: 1. Chest pain. No indication for acute coronary syndrome. 2. Self-limiting supraventricular tachycardia. Currently on beta-adolfo. 3. History of pulmonary embolus, currently resolved. 4. Physical deconditioning. 5. History of breast cancer, currently stable. 6. History of hyperlipidemia, currently stable, on statin. 7. History of hypertension, currently stable, on home medications. 8. History of seizure disorder, remains on gabapentin with no seizure activity. DISCHARGE MEDICATIONS: Include: 1. Venlafaxine 225 mg p.o. daily. 2. Metoprolol tartrate initially was 50 mg b.i.d., increased to 50 mg in the morning, 75 mg in the evening. 3. Gabapentin 300 mg 3 times daily. 4. Atorvastatin 20 mg in the evening. DISPOSITION: The patient was discharged to home in the care of her daughter in stable condition. Referral for VNS was made for in-home physical therapy and nursing assessment. FOLLOWUP: The patient was instructed to follow up with Dr. Ramon. Dr. Ramon was her primary care provider before she move to [place], she is trying to reestablish her relationship with that office now. We also offered to the patient [facility] if she was not able to get into see her primary care provider as returning patient. Her medications were sent to her pharmacy, as she was going to be running out of medications likely before she would be able to get into see her primary care. I explained to her that her metoprolol dose is little bit different now. Also, instructed the patient to possibly discuss having Holter monitor as an outpatient, which can be arranged either through her primary care or through [facility] to assess the short bouts of tachycardia. Again, the patient was stable at this point and asymptomatic and she was comfortable with her discharge plan to home with her daughter in assistance. DIET: The patient to have a heart healthy diet. ACTIVITY: As tolerated with physical therapy in the home. DISPOSITION: Discharged to home. NOAH MERA NP [id number]/[facility] #: [id number] BUNNY
== END 2018-02-02 16:00 | disposition home health service (06) | DRG 313 ==
LOC: ED 09:12 → MEDTELE 12:09 → OBSVTOIN 02-01 16:24
PROVIDERS: ADMIT Internal Medicine; ATTEND Internal Medicine
PROC: 4A02XM4 Measurement of Cardiac Total Activity, External Approach (ICD-10-PCS; principal; 2018-01-31)
PROC: 3E073KZ Introduction of Other Diagnostic Substance into Coronary Artery, Percutaneous Approach (ICD-10-PCS; 2018-01-31)
DX: R07.9 Chest pain, unspecified (principal); I47.1 Supraventricular tachycardia; R51 Headache; E78.5 Hyperlipidemia, unspecified; R53.81 Other malaise; I10 Essential (primary) hypertension; G40.909 Epilepsy, unspecified, not intractable, without status epilepticus; Z96.653 Presence of artificial knee joint, bilateral; Z85.3 Personal history of malignant neoplasm of breast; Z82.5 Family history of asthma and other chronic lower respiratory diseases; Z81.2 Family history of tobacco abuse and dependence; Z86.711 Personal history of pulmonary embolism; Z90.12 Acquired absence of left breast and nipple; Z90.710 Acquired absence of both cervix and uterus; Z80.3 Family history of malignant neoplasm of breast
CPT/HCPCS: 36415; 70450; 71045; 71275; 74174; 78452; 80048; 80053; 81003; 81015; 83605; 83735; 83880; 84443; 84484; 85025; 85610; 85730; 87086; 93005; 93017; 94660; 99284; A9270-GY; A9502; G0378; G8978-GP-CI; G8978-GP-CJ; G8979-GP-CI; G8980-GP-CI; J1644; J2785; J3475; Q9967

== ENCOUNTER 2018-05-30 07:06 | Day surgery (SDC) | payer MEDICARE, BC ==
[~2018-05-30 07:06] MED LIST: Acetaminophen TAB* 325 MG PO PRN; Buffered Lidocaine 1% SYRIN* 1 ML/SYRINGE INTRADERM ONE
[2018-05-30] MEDS ORDERED: Lidocaine 2% PF * 5 ML VIAL ONE (08:12)
[2018-05-30] MEDS ORDERED: Propofol* 10 MG/ML 20 ML BTL ONE (08:12)
[2018-05-30 09:27] VITALS: BP 152/82
--- NOTE | 2018-05-30 11:11 | OP ---
DATE OF OPERATION: 05/30/18 [facility] DATE OF : 36 SURGEON: Dr. John Ames. POWER PRESS OPERATOR: None. ANESTHESIA: Topical with intravenous sedation. PRE-OP DIAGNOSIS: Cataract, right eye. POST-OP DIAGNOSIS: Cataract, right eye. OPERATIVE PROCEDURE: Phacoemulsification and cataract extraction with posterior chamber intraocular lens implant, right eye. COMPLICATIONS: None. BLOOD LOSS: None. DESCRIPTION OF PROCEDURE: The patient was brought to the operating room and received a small amount of intravenous sedation. A drop of Tetracaine was placed in her right eye. She was prepped and draped in the usual sterile fashion for ophthalmic surgery and attention was directed to the right eye where a speculum was placed. A paracentesis was created at the 11 o'clock position and 0.1 cc of 1 percent preservative-free Lidocaine was injected into the anterior chamber followed by DisCoVisc. The eye was digitally stabilized while a 2.75 mm keratome was used to create a triplanar clear corneal incision at the 9 o'clock position. A continuous curvilinear capsulorrhexis was created with a cystotome and Utrata forceps. BSS on a cannula was used to hydrodissect the lens from the capsule. Phacoemulsification was performed in a divide-and- conquer technique to create four fragments which were removed. Residual cortical material was removed with irrigation and aspiration. DisCoVisc was used to inflate the capsular bag and an AU00T0 16.0 diopter lens was folded and inserted into the capsular bag. DisCoVisc was removed using irrigation and aspiration. BSS on a cannula was used to hydrate the corneal stroma and seal the wound. At the end of the case the pupil was round and the lens was centered. The eye was of normal pressure and the wound was water tight. The speculum was removed and topical Maxitrol ointment was placed on the surface of the eye. The eye was closed, patched and shielded and the patient was sent to the recovery room in stable condition with post operative instructions and follow-up appointment given. [id number]/[facility] #: [id number] BUNNY
[2018-05-30] MEDS ORDERED: Tetracaine 0.5% OPTH.SOL 4 ML* 1 DROP BTL ONE (13:47)
[2018-05-30] MEDS ORDERED: Cyclopentolate 1% OPTH.SOL* 2 ML BTL ONE (13:47)
[2018-05-30] MEDS ORDERED: Phenylephrine 2.5% OPTH.SOL* 2 ML BTL ONE (13:47)
[2018-05-30] MEDS ORDERED: Neomycin/Polymy/Dex OPHTH.OIN* 3.5 GM ONE (13:47)
[2018-05-30] MEDS ORDERED: Tropicamide 1% OPTH.SOL* BTL ONE (13:47)
[2018-05-30] MEDS ORDERED: Ketorolac 0.5% OPHTH (NF) 0.5 % 5 ML BTL ONE (13:47)
[2018-05-30] MEDS ORDERED: Lidocaine 1%* 5 ML VIAL ONE (13:47)
[2018-05-30] MEDS ORDERED: Phenylephr/Ketorolac 1%/0.3% OPH DROP BTL ONE (13:48)
== END 2018-05-30 08:46 | disposition home or self-care (01) ==
LOC: OREAST 07:06
PROVIDERS: ATTEND Ophthalmology
DX: H25.11 Age-related nuclear cataract, right eye (principal); I10 Essential (primary) hypertension; G47.33 Obstructive sleep apnea (adult) (pediatric); Z86.711 Personal history of pulmonary embolism; Z85.3 Personal history of malignant neoplasm of breast; E78.5 Hyperlipidemia, unspecified
CPT/HCPCS: A9270-GY; C9447; J2704; V2632